=== PATIENT | male | born 1950 | race Caucasian/White ===

== ENCOUNTER 2020-04-23 10:16 | Emergency (ER) | payer OTHER, SELFPAY ==
[2020-04-23] VITALS (12 sets, daily range): BP systolic 94–134; BP diastolic 57–85; PULSE 70–135; RESP 14–27; TEMP 36.6; O2SAT 97–99
--- NOTE | 2020-04-23 10:26 | DI.RAD.S_ITS ---
PROCEDURE: XR CHEST 1V INDICATIONS: chest pain TECHNIQUE: One view of the chest was acquired. COMPARISON: None. FINDINGS: Surgical changes and devices: None. Lungs and pleura: Lungs are clear. No pleural effusions or pneumothorax. Mediastinum: Mediastinal contours appear normal. Heart size is normal. Bones and chest wall: No suspicious bony lesions. Overlying soft tissues appear unremarkable. IMPRESSION: No acute cardiopulmonary disease process. Dictated by: Dianna Engle MD, PhD on 04/23/2020 at 11:21 Approved by: Dianna Engle MD, PhD on 04/23/2020 at 11:22
[2020-04-23 10:35] LABS: Add Manual Diff / Slide Review NO; Basophils Absolute Auto 0 /uL (0-100); Basophils Percent Auto 1.1 % (0-2); Eosinophils Absolute Auto 100 /uL (0-450); Eosinophils Percent Auto 3.2 % (2-4); Hematocrit 50.5 % (41-53); Hemoglobin 16.5 g/dL (13.5-17.5); Lymphocytes Absolute Auto 800 /uL (1100-4500); Lymphocytes Percent Auto 21.6 % (25-40); Mean Corpuscular HGB Conc 32.7 % (30-36); Mean Corpuscular Hemoglobin 30.8 PG (26-34); Mean Corpuscular Volume 94.5 fL (80-100); Monocytes Absolute Auto 400 /uL (0-900); Monocytes Percent Auto 10.6 % (3-14); Neutrophils Absolute Auto 2500 /uL (1500-7000); Neutrophils Percent Auto 63.5 % (50-75); Platelet Count 132 X10^3/uL (150-400); Red Blood Cell Count 5.35 X10^6/uL (4.5-5.9); Red Cell Distribution Width 12.4 % (11.6-14.8); White Blood Cell Count 3.9 X10^3/uL (4.5-11.0)
[2020-04-23] MEDS: dilTIAZem 5 MG/ML SDV 10 MG IV (10:37)
[2020-04-23] MEDS: SODIUM CHLORIDE 0.9% 500 ML 1000 ML IV (10:37)
--- NOTE | 2020-04-23 10:38 | ED_ITS ---
HPI - Arrhythmia/Palpitations General Chief Complaint: Arrhythmia/Palpitations Stated Complaint: heart palpitations Time Seen by Provider: 04/23/20 10:20 Source: patient Mode of arrival: Ambulatory Limitations: no limitations History of Present Illness HPI narrative: The patient is a 69-year-old male with history of coronary artery disease and prostate cancer presenting with heart palpitations. He says it started abruptly around 1:45 this morning he feels fluttering in his chest. He denies any dizziness or lightheadedness. No shortness of breath or chest pain. He does appear to be in atrial fibrillation on the monitor. MD complaint: rapid heart beat Duration: constant Related Data Previous Rx's Medication Instructions Recorded metoprolol tartrate 12.5 mg PO BID #20 tab 04/23/20 Allergies Allergy/AdvReac Type Severity Reaction Status Date / Time No Known Drug Allergies Allergy Verified 04/23/20 10:25 Review of Systems Review of Systems Narrative: GENERAL: Denies chills, fatigue, malaise, fever, sweats, travel HEENT: Denies sinus pain, ear pain, sore throat, difficulty swallowing, neck pain RESPIRATORY: Denies dyspnea, cough, wheezing, hemoptysis, sputum. CARDIOVASCULAR: See HPI GASTROINTESTINAL: Denies nausea, vomiting, abdominal pain, diarrhea, co nstipation, melena. : Denies dysuria, frequency, incontinence, hematuria, urinary retention, flank pain. MUSCULOSKELETAL: Denies weakness, joint pain, or bony pain SKIN: No rash, no erythema, no pruritus NEUROLOGIC: Denies weakness, dizziness, headache, numbness, change in speech, confusion PSYCHIATRIC: No concerning psychosocial issues. 12 point review of systems is negative except for those stated above and HPI Patient History Medical History Coronary artery disease (Acute) Prostate cancer (Acute) Social History Smoking Status: Never smoker Smoking Status: Never smoker alcohol intake frequency: 0-2 drinks per day Substance Use Type: does not use Exam Initial Vital Signs Initial Vital Signs: Vital Signs Pulse Rate 135 H 04/23/20 10:21 Respiratory Rate 24 04/23/20 10:21 Pulse Oximetry 99 04/23/20 10:21 GENERAL: Pleasant elderly male HEENT: Head atraumatic,EOMI, pupils reactive, face symmetric, moist mucous membranes CARDIOVASCULAR: Irregularly irregular without murmur. RESPIRATORY: Breath sounds equal bilaterally, no wheezes rales or rhonchi. ABDOMEN: Soft, nontender. Normoactive bowel sounds all 4 quadrants. No guard ing or rebound. EXTREMITIES: Normal range of motion, no clubbing or edema. Neurovascularly intact NEUROLOGICAL:Normal gait and speech. Cranial nerves II through XII grossly intact. SKIN: Warm, dry, no laceration, no petechiae, no rashes or lesions. Scores CHADS-VASc Congestive heart failure: no Hypertension: no Age 75 years or older: no Diabetes mellitus: no Stroke, TIA, or TE: no Vascular disease: no Age 65 to 74 years: yes Sex category (female): Male CHADS-VASc Score: 1 Course Orders Ordered: ED Orders 04/23/20 10:25 Complete Blood Count AUTO DIFF Stat Comprehensive Metabolic Panel Stat Lipase Stat Partial Thromboplastin Time Stat Prothrombin Time INR Stat Troponin & CK Cardiac Panel Stat 04/23/20 10:26 XR chest 1V Stat EKG-12 Lead Stat Discontinued Medications Diltiazem HCl (Cardizem) 10 mg IV NOW ONE Stop: 04/23/20 10:32 Last Admin: 04/23/20 10:37 Dose: 10 mg Documented by: JORGE LUIS Sodium Chloride (Normal Saline 0.9%) 500 mls @ 1,000 mls/hr IV BOLUS ONE Stop: 04/23/20 11:00 Last Infusion: 04/23/20 11:10 Dose: 0 mls/hr Documented by: JORGE LUIS Admin: 04/23/20 10:37 Dose: 1,000 mls/hr Documented by: JORGE LUIS Metoprolol Tartrate (Lopressor) 12.5 mg PO NOW ONE Stop: 04/23/20 11:44 Last Admin: 04/23/20 11:50 Dose: 12.5 mg Documented by: JORGE LUIS Vital Signs Vital signs: Vital Signs - 8 hr 04/23/20 10:21 04/23/20 10:22 04/23/20 10:30 Temperature 98 F Pulse Rate 135 H 125 H 129 H Respiratory Rate 24 14 20 Blood Pressure 121/82 134/79 Pulse Oximetry 99 99 98 04/23/20 10:45 04/23/20 11:00 04/23/20 11:24 Temperature Pulse Rate 86 70 86 Respiratory Rate 19 22 27 H Blood Pressure 94/57 L 100/74 Pulse Oximetry 98 97 97 04/23/20 11:25 04/23/20 11:30 04/23/20 11:31 Temperature Pulse Rate 87 78 84 Respiratory Rate 25 H 25 H 18 Blood Pressure 108/79 121/85 Pulse Oximetry 98 99 99 04/23/20 11:45 04/23/20 12:00 04/23/20 12:15 Temperature Pulse Rate 72 73 72 Respiratory Rate 16 16 17 Blood Pressure 102/72 105/69 105/70 Pulse Oximetry 97 98 99 MDM - Arrhythmia/Palpitations Lab Data Attestation: I reviewed the patient's lab results. Result diagrams: 04/23/20 10:25 04/23/20 10:25 Labs: Lab Results 04/23/20 04/23/20 04/23/20 Range/Units 10:25 10:25 10:25 WBC 3.9 L (4.5-11.0) X10^3/uL RBC 5.35 (4.5-5.9) X10^6/uL Hgb 16.5 (13.5-17.5) g/dL Hct 50.5 (41-53) % MCV 94.5 (80-100) fL MCH 30.8 (26-34) PG MCHC 32.7 (30-36) % RDW 12.4 (11.6-14.8) % Plt Count 132 L (150-400) X10^3/uL Neut % (Auto) 63.5 (50-75) % Lymph % (Auto) 21.6 L (25-40) % [place] % (Auto) 10.6 (3-14) % Eos % (Auto) 3.2 (2-4) % Baso % (Auto) 1.1 (0-2) % Neut # (Auto) 2500 (9956-1181) /uL Lymph # (Auto) 800 L (6720-4136) /uL [place] # (Auto) 400 (0-900) /uL Eos # (Auto) 100 (0-450) /uL Baso # (Auto) 0 (0-100) /uL PT 11.3 (10.1-12.7) SECONDS INR 1.0 (0.9-1.3) APTT 35 (26.4-36.2) SECONDS Sodium 137 (137-145) mmol/L Potassium 4.1 (3.4-5.1) mmol/L Chloride 104 (98-107) mmol/L Carbon Dioxide 29 (22-32) mmol/L BUN 22 H (9-20) mg/dL Creatinine 0.79 (0.66-1.25) mg/dL Estimated GFR > 60.0 (>60) mL/min BUN/Creatinine Ratio 27.8 H (6-22) Glucose 197 H (80-110) mg/dL Calcium 9.6 (8.4-10.2) mg/dL Total Bilirubin 0.7 (0.2-1.3) mg/dL AST 38 (17-59) IU/L ALT 30 (<50) IU/L Alkaline Phosphatase 62 (38-126) U/L Total Creatine Kinase 78 (55-170) U/L CK-MB (CK-2) TNP CK-MB (CK-2) Rel Index TNP Troponin I 0.013 (0.01-0.034) ng/mL Total Protein 7.1 (6.3-8.2) g/dL Albumin 4.3 (3.5-5.0) g/dL Globulin 2.8 (1.7-4.1) g/dL Albumin/Globulin Ratio 1.5 (1.0-2.8) Lipase 106 (23-300) U/L Imaging Data Chest x-ray: Radiologist's Impresson: PROCEDURE: XR CHEST 1V INDICATIONS: chest pain TECHNIQUE: One view of the chest was acquired. COMPARISON: None. FINDINGS: Surgical changes and devices: None. Lungs and pleura: Lungs are clear. No pleural effusions or pneumothorax. Mediastinum: Mediastinal contours appear normal. Heart size is normal. Bones and chest wall: No suspicious bony lesions. Overlying soft tissues appear unremarkable. IMPRESSION: No acute cardiopulmonary disease process. Dictated by: Dianna Engle MD, PhD on 04/23/2020 at 11:21 ECG Data Attestation: I personally reviewed and interpreted this ECG as follows: Prior ECG tracings: not available for review Interpretation: Atrial fibrillation rate [address] changes or T-wave inversions MDM Narrative Medical decision making narrative: The patient's heart rate decreased to the 70s he is still in atrial fibrillation but is completely asymptomatic. He says he has no symptoms is at all. Patient's demeanor seems a little bit off I am not sure I trust he knows exactly when this started he has a difficult time descri gelacio things. But with heart rate in the 70s he is asymptomatic at this time. It is difficult to tell if he is always in atrial fibrillation and had increase in heart rate or if he went into AFib. I discussed risks and benefits of cardioverting with and patient. At this time the risk seems to outweigh the benefit. His heart rate is now controlled. Will start him on 10/19 a metoprolol and further instructed follow-up with his primary care provider Discharge Plan Departure Patient Disposition: Home Clinical Impression: Atrial fibrillation Qualifiers: Atrial fibrillation type: unspecified Qualified Code(s): I48.91 - Unspecified a trial fibrillation Discharge Date/Time: 04/23/20 12:39 Instructions: DI for Atrial Fibrillation Activity Restrictions/Additional Instructions: *You have been diagnosed with atrial fibrillation *What to do: I recommend you have further testing done with her primary care provider such as an echocardiogram you may even require Cardiology referral. There is small risk of stroke with this arrhythmia please be sure to take your aspirin *Continue to take medications as directed Metoprolol 12.5 mg twice a day *Follow up with your primary care provider in 2-3 days *Return to ER if you should have increasing heart palpitations, shortness of breath dizziness chest pain or any new, worsening or concerning symptoms Prescriptions: New metoprolol tartrate 25 mg tablet 12.5 mg PO BID Qty: 20 RF: 0 Referrals: Eugenio Torres MD [Primary Care Provider] -
[2020-04-23 10:42] LABS: Prothrombin Time 11.3 SECONDS (10.1-12.7)
[2020-04-23 10:44] LABS: PTT Partial Thromboplastin Tim 35 SECONDS (26.4-36.2)
[2020-04-23 10:47] LABS: Alanine Aminotransferase 30 IU/L (<50); Albumin 4.3 g/dL (3.5-5.0); Albumin Globulin Ratio 1.5 (1.0-2.8); Alkaline Phosphatase 62 U/L (38-126); Aspartate Aminotransferase 38 IU/L (17-59); BUN Creatinine Ratio 27.8 (6-22); Bilirubin Total 0.7 mg/dL (0.2-1.3); Blood Urea Nitrogen 22 mg/dL (9-20); Calcium 9.6 mg/dL (8.4-10.2); Carbon Dioxide 29 mmol/L (22-32); Chloride 104 mmol/L (98-107); Creatine Kinase 78 U/L (55-170); Estimated Glomerular Filt Rate > 60.0 mL/min (>60); Globulin 2.8 g/dL (1.7-4.1); Glucose 197 mg/dL (80-110); HEMOLYSIS 20 (0-50); Lipase 106 U/L (23-300); Potassium 4.1 mmol/L (3.4-5.1); Sodium 137 mmol/L (137-145); Total Protein 7.1 g/dL (6.3-8.2)
[2020-04-23 10:58] LABS: Troponin I 0.013 ng/mL (0.01-0.034)
[2020-04-23] MEDS: METOPROLOL IR 25 MG TABLET 12.5 MG PO (11:50)
== END 2020-04-23 12:39 | disposition home or self-care (01) ==
PROVIDERS: Emergency Provider Emergency Medicine; PCP Family Medicine
DX: I48.91 Unspecified atrial fibrillation (principal)
CPT/HCPCS: 36415; 71045; 80053; 82550; 83690; 84484; 85025; 85610; 85730; 93005; 93010; 96361; 96374; 99284

== ENCOUNTER 2022-02-25 18:21 | Emergency (ER) | payer OTHER, SELFPAY ==
[2022-02-25 18:35] VITALS: BP 127/63; PULSE 60; RESP 16; TEMP 36.5; O2SAT 99; BMI 24.1
[2022-02-25] MEDS: LIDO 1%/SOD BICARB 8.4% (10ML) 10 ML SYRINGE INJ (20:36)
[2022-02-25] MEDS: TET,DIPH,PERTUSS(ACELL),VAC/PF 0.5 ML SYRINGE IM (20:36)
--- NOTE | 2022-02-25 20:48 | PC.NURSE ---
Dime sized open wound to base of L 5th digit. Pt declines xray. PLASTIC DUPLICATOR intact distally
--- NOTE | 2022-02-25 21:50 | DI.RAD.S_ITS ---
PROCEDURE: XR HAND LT MIN 3V INDICATIONS: laceration 5th digit. hx dupytrens. TECHNIQUE: Three views of the left hand acquired. COMPARISON: None. FINDINGS: Bones: There is suspected mild dorsal subluxation of the 5th distal interphalangeal joint. No definite fractures. There is mild flexion of the 5th proximal interphalangeal joint compatible with patient's history of Dupuytren's contracture. Carpal bones are normally aligned. No suspicious bony lesions. Soft tissues: No radiopaque foreign bodies. No suspicious soft tissue calcifications. IMPRESSION: 1. Suspected mild dorsal subluxation of the 5th distal interphalangeal joint. The findings may also reflect sequelae of Dupuytren's contracture and correlation is recommended clinically. 2. No definite fractures. Dictated by: Ethan Robison M.D. on 02/25/2022 at 22:40 Approved by: Ethan Robison M.D. on 02/25/2022 at 22:44
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
[2022-02-25] MEDS: BACITRACIN OINT 0.9 GM PCKT 1 APPLIC TOP (23:30)
[2022-02-25] MEDS: cephALEXin 250 MG CAPSULE 500 MG PO (23:30)
--- NOTE | 2022-02-25 23:40 | PC.NURSE ---
Bacitracin, non-adherent gauze and finger splint applied to pt injured left 1st digit finger. Wound care discussed with pt and at bedside, verbalized understanding of these and discharge instructions.
[2022-02-25 23:42] VITALS: BP 130/80; PULSE 61; RESP 18; O2SAT 98
== END 2022-02-25 23:43 | disposition home or self-care (01) ==
PROVIDERS: Emergency Provider Emergency Medicine; PCP Family Medicine
DX: S61.217A Laceration without foreign body of left little finger without damage to nail, initial encounter (principal); V19.9XXA Pedal cyclist (driver) (passenger) injured in unspecified traffic accident, initial encounter; Z23 Encounter for immunization
CPT/HCPCS: 12001; 73130; 90471; 99283; 99284; 90715